=== PATIENT | female | born 1945 | race Caucasian/White ===

== ENCOUNTER → 2018-02-16 | Outpatient (CLI) | payer MEDICARE, OTHER ==
--- NOTE | 2018-02-18 10:18 | MM ---
Reason for exam: screening (asymptomatic). Last mammogram was performed 1 year ago. History: Patient is postmenopausal. Physical Findings: A clinical breast exam by your physician is recommended on an annual basis and results should be correlated with mammographic findings. MG 3D Screening Mammo W/Cad Bilateral CC and MLO view(s) were taken. Prior study comparison: February 14, 2017, mammogram, performed at [facility]. February 14, 2016, mammogram, performed at [facility]. The breast tissue is heterogeneously dense. This may lower the sensitivity of mammography. No significant changes when compared with prior studies. ASSESSMENT: Benign, BI-RAD 2 RECOMMENDATION: Routine screening mammogram of both breasts in 1 year.
== END | disposition home or self-care (01) ==
LOC: RADMAMWWP 13:54
PROVIDERS: ATTEND Family Medicine
DX: Z12.31 Encounter for screening mammogram for malignant neoplasm of breast (principal)
CPT/HCPCS: 77063; 77067

== ENCOUNTER → 2018-04-07 | Outpatient (CLI) | payer MEDICARE, OTHER ==
--- NOTE | 2018-04-07 10:59 | CT ---
EXAMINATION TYPE: CT brain wo con DATE OF EXAM: 04/07/2018 COMPARISON: None HISTORY: Fatigue, GUERRERO, Lt supraclavicular swelling CT DLP: 1061.[address] of the brain was performed. The ventricles, basal cisterns and sulci overlying the cerebral convexities demonstrate mild enlargem ent. There is no evidence for intracranial hemorrhage or sulcal effacement. There is decreased attenuation about the periventricular white matter and deep white matter of both c erebral hemispheres, compatible with chronic small vessel ischemia. Differential diagnosis does inclu de demyelination. No mass effects are seen.No midline shift. Osseous calvarium is intact. If symptoms persist consider MRI. IMPRESSION: 1. Age related atrophic and chronic small vessel ischemic change without acute intracranial process s een at this time.
--- NOTE | 2018-04-07 11:03 | CT ---
EXAMINATION TYPE: CT soft tissue neck wo con DATE OF EXAM: 04/07/2018 COMPARISON: None HISTORY: Fatigue, GUERRERO, Lt supraclavicular swelling CT DLP: 229.4 mGycm CONTRAST: Unenhanced CT scan of the neck is performed . The lack of contrast limits evaluation. Markers placed at the site of clinical concern overlying the left supraclavicular region. Contrast enhanced CT of the neck was performed from the skull base through the lung apices. At the site of clinical concern left supraclavicular region there is no evidence for mass or abnormal collection. AIRWAY: The supraglottic, glottic, and subglottic portions of the airway appear patent and free of mass. SALIVARY GLANDS: The submandibular and parotid glands are free of mass or inflammatory process. THYROID GLAND: Scattered nonspecific subcentimeter thyroid nodules. LYMPH NODES: No adenopathy seen greater than 1cm. LUNG APICES: No nodule or mass is seen. Biapical scarring noted. OTHER: Vascular structures are patent. No significant degenerative change of the cervical spine. N o abscess seen. IMPRESSION: 1.At the site of clinical concern left supraclavicular region there is no evidence for mass or abnorm al collection. 2. Subcentimeter nonspecific thyroid nodularity.
--- NOTE | 2018-04-07 17:52 | ECHOF ---
Referral Reason:R53.83 Fatigue,R51 Headache R22.1 Lump on neck MEASUREMENTS -------- HEIGHT: 162.6 cm WEIGHT: 62.1 kg BP: 170/102 IVSd: 1.0 cm (0.6 - 1.1) LVIDd: 3.9 cm (3.9 - 5.3) LVPWd: 0.9 cm (0.6 - 1.1) IVSs: 1.6 cm LVIDs: 2.5 cm LVPWs: 1.2 cm LA Diam: 2.7 cm (2.7 - 3.8) RVIDd: 3.3 cm (< 3.3) LAESV Index (A-L): 19.18 ml/m Ao Diam: 3.1 cm (2.0 - 3.7) AV Cusp: 1.9 cm (1.5 - 2.6) EPSS: 0.7 cm MV E Liu: 0.79 m/s MV DecT: 257 ms MV A Liu: 0.84 m/s MV E/A Ratio: 0.94 RAP: 5.00 mmHg RVSP: 24.45 mmHg MV EF SLOPE: 47.53 mm/s (70 - 150) MV EXCURSION: 13.02 mm (> 18.000) FINDINGS -------- Sinus rhythm. This was a technically adequate study. The left ventricular size is normal. Left ventricular wall thickness is normal. Overall left vent ricular systolic function is normal with, an EF between 60 - 65 %. The right ventricle is mildly enlarged. Normal LA size by volume 22+/-6 ml/m2. The right atrium is normal in size. The aortic valve is trileaflet and appears structurally normal. Moderate mitral regurgitation is present. Mild tricuspid regurgitation present. Right ventricular systolic pressure is normal at < 35 mmHg. There is no pulmonic regurgitation present. The aortic root size is normal. Normal inferior vena cava with normal inspiratory collapse consistent with estimated right atrial pre ssure of 5 mmHg. There is no pericardial effusion. CONCLUSIONS -------- 1. Sinus rhythm. 2. This was a technically adequate study. 3. The left ventricular size is normal. 4. Left ventricular wall thickness is normal. 5. Overall left ventricular systolic function is normal with, an EF between 60 - 65 %. 6. The right ventricle is mildly enlarged. 7. Normal LA size by volume 22+/-6 ml/m2. 8. The right atrium is normal in size. 9. The aortic valve is trileaflet and appears structurally normal. 10. Moderate mitral regurgitation is present. 11. Mild tricuspid regurgitation present. 12. Right ventricular systolic pressure is normal at < 35 mmHg. 13. There is no pulmonic regurgitation present. 14. The aortic root size is normal. 15. Normal inferior vena cava with normal inspiratory collapse consistent with estimated right atrial pressure of 5 mmHg. 16. There is no pericardial effusion. REVIEW NURSE: Hillary Whitney RDCS
--- NOTE | 2018-04-07 20:31 | EST ---
EXERCISE STRESS AGE: 72 SEX: Female HT: 64" WT: 137 pounds PROTOCOL: Osvaldo. STAGE: II DURATION OF EXERCISE: 6:00 HEART RATE REST: 72 BLOOD PRESSURE REST: 170/102 MAXIMUM HEART RATE ACHIEVED: 126 MAXIMUM BLOOD PRESSURE: 220/92 85% MPHR: 125 100% MPHR: 147 METS: 7.1 INDICATIONS: Neck and arm pain. CLINICAL INFORMATION: Baseline heart rate 72 beats per minute. Baseline blood pressure 170/102 mmHg. Baseline 12-lead ECG showed normal sinus rhythm with normal cardiac intervals. Patient exercised on a Osvaldo protocol for 6 minutes, achieving peak heart rate of 126 beats per minute, hypertensive exercise. Peak blood pressure 220/92 mmHg. Artifact during stress testing was noted, but at peak exercise there was no ECG evidence for ischemia. No arrhythmias noted. Nuclear portion will be reported separately. IMPRESSION: Average exercise capacity. Baseline elevation in systolic and diastolic blood pressures. No ECG evidence for ischemia at this workload level. MMODL / IJN: [id number] /
== END | disposition home or self-care (01) ==
LOC: RADNMMAIN 10:10
PROVIDERS: ATTEND Family Medicine
DX: G31.1 Senile degeneration of brain, not elsewhere classified (principal); I67.82 Cerebral ischemia; E04.2 Nontoxic multinodular goiter; I08.1 Rheumatic disorders of both mitral and tricuspid valves; R51 Headache; R53.83 Other fatigue
CPT/HCPCS: 70450; 70490; 93017; 93306

== ENCOUNTER → 2018-10-16 | Outpatient (CLI) | payer MEDICARE, OTHER ==
--- NOTE | 2018-10-17 11:34 | XR ---
EXAMINATION TYPE: XR chest 2V DATE OF EXAM: 10/16/2018 COMPARISON: 09/09/2017 TECHNIQUE: PA and lateral views submitted. HISTORY: Cough FINDINGS: The lungs are clear and there is no pneumothorax, pleural effusion, or focal pneumonia. Hyperinflat ion. Atherosclerotic change aorta and biapical pleural thickening. No overt failure. Coarsened linear changes involving the upper lobes. Hypertrophic and degenerative change spine. Vague density right u pper lobe. IMPRESSION: 1. No acute process. Findings suggest COPD. There is a vague somewhat nodular density in the right up per lobe. Recommend CT of the chest.
== END | disposition home or self-care (01) ==
LOC: RADXRMAIN 17:26
PROVIDERS: ATTEND Family Medicine
DX: R91.8 Other nonspecific abnormal finding of lung field (principal)
CPT/HCPCS: 71046

== ENCOUNTER → 2018-10-22 | Outpatient (CLI) | payer MEDICARE, OTHER ==
--- NOTE | 2018-10-22 09:00 | CT ---
EXAMINATION TYPE: CT chest wo con DATE OF EXAM: 10/22/2018 COMPARISON: 10/16/2018 HISTORY: Solitary pulmonary nodule. Abnormal chest radiograph. CT DLP: 328 mGycm. Automated Exposure Control for Dose Reduction was Utilized. TECHNIQUE: CT scan of the thorax is performed without IV contrast. FINDINGS: LUNGS: There is biapical pleural parenchymal scarring. There is mild background pulmonary emphysema a s there is pulmonary hyperexpansion, increased anterior posterior diameter of the chest, and increase d retrosternal airspace. The lungs are grossly clear without focal consolidation. 2 mm subpleural pul monary nodule is seen in the left lower lobe on series 4 image 28. 3 mm solid pulmonary nodule seen o n series 4 image 40 in the left lower lobe. Just anterior to this on the same image there is a 1 to 2 mm subpleural pulmonary nodule. Possible intrafissural lymph node is seen on the right elongated and morphology on series 4 image 25. This appears to be within the fissure axially, however on coronal i mage series 5 image 61 this does not appear to be within the fissure and measures 5 mm. Corresponding to the radiographic finding of possible right upper lobe pulmonary nodule there is a fo baltazar area of pleural thickening measuring 6 mm on series 4 image 19. This is contiguous with multiple other areas of pleural-parenchymal scarring extending inferiorly from the lung apices. Linear focus of probable pleural-parenchymal scarring is seen on series 4 image 28 in the right lower lobe that appears marked irregular morphology on coronal series 5 image 60. There is no pleural effusion or pneumothorax seen. The tracheobronchial tree is patent. MEDIASTINUM: Lack of IV contrast is noted to limit evaluation for mediastinal and especially hilar ad enopathy. There are no definitive greater than 1 cm hilar or mediastinal lymph nodes. No cardiomega ly or pericardial effusion is seen. Mild coronary artery calcifications are seen. OTHER: There is an approximately 1.2 cm left renal cyst. There is a lobulated contour of both kidneys . There is a moderate hiatal hernia present. The thyroid gland is heterogenous. There are mild multil evel degenerative changes of the thoracic spine. IMPRESSION: Corresponding to the radiographic finding there is a focal area of subcentimeter pleural thickening. Multiple bilateral subcentimeter pulmonary nodules are seen in this patient with underlyi ng COPD and therefore short-term follow-up is recommended in 6 months to determine stability.
== END | disposition home or self-care (01) ==
LOC: RADCTMAIN 07:17
PROVIDERS: ATTEND Family Medicine
DX: J44.9 Chronic obstructive pulmonary disease, unspecified (principal); J92.9 Pleural plaque without asbestos
CPT/HCPCS: 71250

== ENCOUNTER → 2019-03-10 | Outpatient (CLI) | payer MEDICARE, OTHER ==
--- NOTE | 2019-03-11 09:57 | MM ---
Reason for exam: screening (asymptomatic). Last mammogram was performed 1 year and 1 month ago. History: Patient is postmenopausal. Physical Findings: A clinical breast exam by your physician is recommended on an annual basis and results should be correlated with mammographic findings. MG 3D Screening Mammo W/Cad Bilateral CC and MLO view(s) were taken. Prior study comparison: February 16, 2018, bilateral MG 3d screening mammo w/cad. February 14, 2017, mammogram, performed at [facility]. The breast tissue is heterogeneously dense. This may lower the sensitivity of mammography. Benign appearing calcifications in the left breast. No significant changes when compared with prior studies. ASSESSMENT: Benign, BI-RAD 2 RECOMMENDATION: Routine screening mammogram of both breasts in 1 year.
== END ==
LOC: RADMAMWWP 14:31
PROVIDERS: ATTEND Family Medicine
DX: Z12.31 Encounter for screening mammogram for malignant neoplasm of breast (principal)
CPT/HCPCS: 77063; 77067

== ENCOUNTER → 2019-06-22 | Outpatient (CLI) | payer MEDICARE, OTHER ==
--- NOTE | 2019-06-23 08:10 | MR ---
EXAMINATION TYPE: MR brain wo con DATE OF EXAM: 06/22/2019 COMPARISON: CT brain dated 04/07/2018 HISTORY: Chronic tension-type headaches. TECHNIQUE: Multiplanar, multisequence images of the brain and brainstem is performed without intravenous contras t. FINDINGS: Diffusion weighted images demonstrate no evidence of a recent infarct or other diffusion ab normality. There is no extra-axial fluid collection. There are scattered foci of T2/FLAIR hyperinten sity within the subcortical and periventricular white matter, overall moderate burden. These most com monly relate to sequela of microangiopathy. The ventricular system and cisternal spaces are symmetric ally prominent compatible with age-related volume loss. Volume is age-appropriate. Midline structures demonstrate normal morphology. The craniocervical junction appears within normal limits. The dural venous sinuses appear patent. Mild mucosal thickening is seen in the ethmoid sinuse s. The remaining visualized sinuses are clear and the globes are intact. IMPRESSION: 1. No acute infarct, mass effect, or midline shift. 2. Moderate burden nonspecific white matter change, most prominently on the basis of chronic microang iopathy. Less likely considerations are for demyelinating disease or sequela of migraines. 3. Scant mucosal thickening of the ethmoid sinuses, which can be seen in acute or chronic sinusitis.
== END | disposition home or self-care (01) ==
LOC: RADMRIMAIN 12:36
PROVIDERS: ATTEND Family Medicine
DX: R90.89 Other abnormal findings on diagnostic imaging of central nervous system (principal); R51 Headache; I73.9 Peripheral vascular disease, unspecified
CPT/HCPCS: 70551

== ENCOUNTER → 2019-10-26 | Outpatient (CLI) | payer MEDICARE, OTHER ==
--- NOTE | 2019-10-26 16:02 | XR ---
KUB HISTORY: Left-sided kidney stone Frontal KUB submitted on 2 images and correlated to prior abdomen 09/09/2017 There is irregular calcification superimposed over the lower pole the left kidney region, calcificati on measures approximately 9 mm in transverse dimension, there may be smaller calculi present, 3 or 4 stones. There is a levoscoliosis present. Retained fecal debris present throughout the distribution o f the colon. No evident bowel obstruction or pneumoperitoneum. IMPRESSION: Left-sided nephrolithiasis.
== END | disposition home or self-care (01) ==
LOC: RADXRMAIN 11:29
PROVIDERS: ATTEND Urology
DX: N20.0 Calculus of kidney (principal)
CPT/HCPCS: 74018

== ENCOUNTER → 2020-06-12 | Outpatient (CLI) | payer MEDICARE, OTHER ==
--- NOTE | 2020-06-14 11:04 | MM ---
Reason for exam: screening (asymptomatic). Last mammogram was performed 1 year and 3 months ago. History: Patient is postmenopausal. Physical Findings: A clinical breast exam by your physician is recommended on an annual basis and results should be correlated with mammographic findings. MG 3D Screening Mammo W/Cad Bilateral CC and MLO view(s) were taken. Prior study comparison: March 10, 2019, bilateral MG 3d screening mammo w/cad. February 16, 2018, bilateral MG 3d screening mammo w/cad. The breast tissue is heterogeneously dense. This may lower the sensitivity of mammography. No significant changes when compared with prior studies. ASSESSMENT: Negative, BI-RAD 1 RECOMMENDATION: Routine screening mammogram of both breasts in 1 year.
== END | disposition home or self-care (01) ==
LOC: RADMAMWWP 08:38
PROVIDERS: ATTEND Family Medicine
DX: Z12.31 Encounter for screening mammogram for malignant neoplasm of breast (principal)
CPT/HCPCS: 77063; 77067

== ENCOUNTER → 2021-02-27 | Outpatient (CLI) | payer MEDICARE, OTHER ==
--- NOTE | 2021-02-28 08:15 | XR ---
EXAM TYPE: LUMBAR SPINE X RAY SERIES COMPARISON: NONE HISTORY: Pain TECHNIQUE: 4 views are submitted. FINDINGS: Diffuse osteopenia with levoscoliosis and multilevel degenerative disc disease with severe changes at L3-4 and L4-5. Multilevel facet arthropathy. Vascular calcium patient. There are multiple left-sided upper quadrant calcifications largest measuring 9.4 mm. IMPRESSION: 1. Multilevel severe degenerative disc disease with diffuse osteopenia and facet arthropathy consider follow-up MRI with foraminal encroachment suspected. 2. Large left renal calculi.
--- NOTE | 2021-02-28 08:16 | XR ---
EXAMINATION TYPE: XR Hip Bilateral Complete DATE OF EXAM: 02/27/2021 COMPARISON: NONE HISTORY: Pain TECHNIQUE: 2 views of each hip is submitted FINDINGS: There is no evidence of erosive change or acute fracture. Mild concentric narrowing of the right hip joint. There is more moderate narrowing of the left hip wi th axial direction. Hypertrophic spurring of the left hip noted. No acute fracture. Note dislocation. IMPRESSION: 1. Moderate to severe axial narrowing of the left hip joint correlate for arthropathy. Severe follow- up MRI. 2. Mild arthropathy right hip..
== END | disposition home or self-care (01) ==
LOC: RADXRMAIN 17:23
PROVIDERS: ATTEND Family Medicine
DX: M51.36 Other intervertebral disc degeneration, lumbar region (principal); M85.88 Other specified disorders of bone density and structure, other site; M46.96 Unspecified inflammatory spondylopathy, lumbar region; N20.0 Calculus of kidney; M12.851 Other specific arthropathies, not elsewhere classified, right hip; M25.852 Other specified joint disorders, left hip
CPT/HCPCS: 72110; 73521

== ENCOUNTER → 2021-04-11 | Outpatient (CLI) | payer MEDICARE, OTHER ==
--- NOTE | 2021-04-11 13:55 | MR ---
EXAMINATION TYPE: MR lumbar spine wo con DATE OF EXAM: 04/11/2021 COMPARISON: Plain radiographs 02/27/2021 HISTORY: Lumbar spine pain, pain in left leg TECHNIQUE: Multiplanar, multisequence images of the lumbar spine were acquired. L1-L2: There is a disc bulge with mild left neural foraminal narrowing. L2-L3: There is a disc bulge with mild bilateral facet arthropathy resulting in mild bilateral neural foraminal narrowing. L3-L4: There is a disc bulge with mild bilateral facet arthropathy resulting in moderate bilateral ne ural foraminal narrowing and mild central canal stenosis. L4-L5: There is a disc bulge with mild bilateral facet arthropathy resulting in mild bilateral neural foraminal narrowing and mild central canal stenosis. L5-S1: There is a disc bulge with mild bilateral facet arthropathy resulting in moderate bilateral ne ural foraminal narrowing and mild central canal stenosis. Lumbar segments are intact. T2 bright lesions of the kidneys most likely represent cysts and: Ultraso und be performed if clinically warranted. Conus medullaris has a normal appearance. 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
== END | disposition home or self-care (01) ==
LOC: RADMRIMAIN 11:58
PROVIDERS: ATTEND Family Medicine
DX: M51.9 Unspecified thoracic, thoracolumbar and lumbosacral intervertebral disc disorder (principal)
CPT/HCPCS: 72148

== ENCOUNTER → 2021-04-16 | Outpatient (CLI) | payer MEDICARE, OTHER ==
[2021-04-16 09:09] LABS: African American GFR (CKD) >90 (>60 ml/min/1.73 sqM); Blood Urea Nitrogen 23 mg/dL (7-17); Non-African American GFR(CKD) 87 (>60 ml/min/1.73 sqM)
--- NOTE | 2021-04-16 11:57 | CT ---
EXAMINATION TYPE: CT chest wo/w con DATE OF EXAM: 04/16/2021 COMPARISON: 10/22/2018 HISTORY: Pulmonary nodule CT DLP: 222.5 mGycm, Automated exposure control for dose reduction was used. CONTRAST: Performed injected with 100 mL of Isovue 300. TECHNIQUE: Axial images were obtained at 5 mm thick sections. Reconstructed images are reviewed on [facility] computer in the coronal plane. Images without and with intravenous contrast. FINDINGS: Portion of the thyroid visualized is normal. Previous peripheral density size. Small nodule in the right mid lung measuring 0.3 cm is stable, seri es 7 image 29. There is a 0.3 cm nodule peripheral left base present previously and stable. No new no dules are noted. Previous posterior lateral right upper lobe density has resolved. Stable scarring at the apex. No enlarged mediastinal or hilar adenopathy is evident. The ascending aorta diameter at the level o f the main pulmonary artery is 3.4 cm. The main pulmonary artery diameter at the bifurcation is 2.2 cm. Hiatal hernia present. Limited CT sections are obtained through the upper abdomen. Abdomen is essentially unremarkable. IMPRESSIONS: 1. Stable nodularity. Follow-up exam in 6 months to confirm stability recommended.
== END | disposition home or self-care (01) ==
LOC: RADCTMAIN 08:30
PROVIDERS: ATTEND Family Medicine
DX: R91.1 Solitary pulmonary nodule (principal)
CPT/HCPCS: 82565; 84520; 71270; 36415; Q9967

== ENCOUNTER → 2021-07-04 | Outpatient (CLI) | payer MEDICARE, OTHER ==
--- NOTE | 2021-07-05 08:39 | US ---
EXAMINATION TYPE: US kidneys/renal and bladder DATE OF EXAM: 07/04/2021 COMPARISON: NONE CLINICAL HISTORY: 75-year-old female R35.0 Frequency of micturition. Urinary frequency . TECHNIQUE: Multiple sonographic images of the kidneys and bladder are obtained. FINDINGS: EXAM MEASUREMENTS: Right Kidney: 10.9 x 3.9 x 3.9 cm Left Kidney: 11.0 x 4.7 x 3.5 cm No hydronephrosis on either side. Right Kidney: cystic area lower pole = 1.1 x 0.7 x 1.1cm Left Kidney: cystic area = 2.0 x 1.4 x 1.9cm. Echogenic, shadowing focus lower pole measures 1.5 cm. Bladder: appears wnl Bilateral Jets seen: yes IMPRESSION: 1. No hydronephrosis. 2. A benign cyst within each kidney measuring up to 2.0 cm. 3. Additional 1.5 cm nonobstructive left lower pole renal calculus.
== END | disposition home or self-care (01) ==
LOC: RADUSWWP 16:04
PROVIDERS: ATTEND Urology
DX: N28.1 Cyst of kidney, acquired (principal); N20.0 Calculus of kidney
CPT/HCPCS: 76770

== ENCOUNTER → 2021-09-05 | Outpatient (CLI) | payer MEDICARE, OTHER ==
--- NOTE | 2021-09-06 14:35 | MM ---
Reason for exam: screening (asymptomatic). Last mammogram was performed 1 year and 3 months ago. History: Patient is postmenopausal. Physical Findings: A clinical breast exam by your physician is recommended on an annual basis and results should be correlated with mammographic findings. MG 3D Screening Mammo W/Cad Bilateral CC and MLO view(s) were taken. XCCL view(s) were taken of the left breast. Prior study comparison: June 12, 2020, bilateral MG 3d screening mammo w/cad. March 10, 2019, bilateral MG 3d screening mammo w/cad. The breast tissue is heterogeneously dense. This may lower the sensitivity of mammography. No significant changes when compared with prior studies. ASSESSMENT: Benign, BI-RAD 2 RECOMMENDATION: Routine screening mammogram of both breasts in 1 year.
== END | disposition home or self-care (01) ==
LOC: RADMAMWWP 08:32
PROVIDERS: ATTEND Family Medicine
DX: Z12.31 Encounter for screening mammogram for malignant neoplasm of breast (principal)
CPT/HCPCS: 77063; 77067

== ENCOUNTER → 2021-09-11 | Outpatient (CLI) | payer MEDICARE, OTHER ==
--- NOTE | 2021-09-11 22:53 | CT ---
EXAMINATION TYPE: CT abdomen pelvis wo con DATE OF EXAM: 09/11/2021 HISTORY: abdominal/pelvic pain CT DLP: 240.8 mGycm. Automated Exposure Control for Dose Reduction was Utilized. TECHNIQUE: CT scan of the abdomen and pelvis is performed with oral but without IV contrast. COMPARISON: NONE FINDINGS: Within the limitations of a non-contrast study, the following observations are made. LUNG BASES: No significant abnormality is appreciated. LIVER/GB: No significant abnormality is appreciated. PANCREAS: No significant abnormality is seen. SPLEEN: No significant abnormality is seen. ADRENALS: No significant abnormality is seen. KIDNEYS: Several adjacent calculi lower pole left kidney measure up to 9 mm in size coronal image 47 with approximately 5 distinct calculi seen. No right-sided nephrolithiasis. Ovoid 1.7 cm low dense le heri laterally midpole left kidney on image 49 favors benign thin-walled cyst. Symmetric mild bilater al pyelocaliectasis without hydroureter. BOWEL: Oral contrast reaches mid transverse colon. Patient has little intra-abdominal fat making eval uation suboptimal. Mild to moderate diffuse colonic fecal prominence. No suspicious small or large bessie wel dilatation. GENITAL ORGANS: Anteverted uterus. LYMPH NODES: No greater than 1cm abdominal or pelvic lymph nodes are appreciated. OSSEOUS STRUCTURES: Underlying levoconvex scoliosis centered at L3 level. Moderate to severe disc spa ce narrowing right L3-L4 and L4-L5 levels. Moderate disc space narrowing L5-S1 level.. OTHER: Mild calcified plaque of the aorta extends into branch vessels. IMPRESSION: 1. Ijer-[id number] diffuse colonic fecal stasis. No bowel obstruction. 2. Nonobstructing lower pole left renal calculi. No obstructing ureter calculi bilaterally.
== END | disposition home or self-care (01) ==
LOC: RADCTMAIN 15:45
PROVIDERS: ATTEND Family Medicine
DX: N20.0 Calculus of kidney (principal)
CPT/HCPCS: 74176

== ENCOUNTER → 2022-01-14 | Outpatient (CLI) | payer MEDICARE, OTHER ==
[2022-01-14 10:02] LABS: African American GFR (CKD) >90 (>60 ml/min/1.73 sqM); Blood Urea Nitrogen 17 mg/dL (7-17); Non-African American GFR(CKD) 89 (>60 ml/min/1.73 sqM)
--- NOTE | 2022-01-14 11:32 | CT ---
EXAMINATION TYPE: CT chest wo/w con DATE OF EXAM: 01/14/2022 COMPARISON: CT dated 04/16/2021 HISTORY: Pulmonary nodule CT DLP: 231.1 mGycm Automated exposure control for dose reduction was used. TECHNIQUE: CT scan of the chest is performed without and with IV Contrast, patient injected with 100 mL of Isovu e 300. FINDINGS: LUNGS: Stable scattered bilateral pulmonary parenchymal and pleural-based nodules measuring up to 17 mm in the right lower lobe superior segment, unchanged since September 2018 CT scan consistent with kike ign nodules and requiring no further follow-up. Bilateral apical pulmonary fibrotic changes and scarr ing stable. No new or progressive lung lesion. Patent trachea and main bronchi. No pleural effusion. MEDIASTINUM: There are no greater than 1 cm hilar or mediastinal lymph nodes. Mild left atrial dilata tion. Scattered arterial atherosclerotic calcifications. No pericardial effusion is seen. OTHER: Tiny right thyroid lobe hypodensity, stable. Unchanged anterior hepatic cyst. Stable left mayra al cyst. Small sliding hiatal hernia. No aggressive bone lesion. Degenerative changes of the thoracic spine. IMPRESSION: Stable scattered bilateral pulmonary nodules as described above, unchanged since September 2018 CT scan consistent with benign nodules. No new or progressive lung lesion. Incidental findings as described above.
== END | disposition home or self-care (01) ==
LOC: RADCTMAIN 11-05 10:39
PROVIDERS: ATTEND Family Medicine
DX: R91.1 Solitary pulmonary nodule (principal)
CPT/HCPCS: 82565; 84520; 71270; 36415; Q9967

== ENCOUNTER → 2022-05-02 | Outpatient (CLI) | payer MEDICARE, OTHER ==
--- NOTE | 2022-05-02 15:05 | XR ---
EXAMINATION TYPE: XR KUB DATE OF EXAM: 05/02/2022 2:33 PM CLINICAL HISTORY: Kidney stone on left side. TECHNIQUE: Single KUB image of the abdomen is obtained. COMPARISON: CT abdomen pelvis 09/11/2021, KUB 10/26/2019. FINDINGS: Nonobstructive bowel gas pattern. Moderate amount of stool is present within the colon. Unc hanged 1 cm irregular calcification overlying the expected region of the lower pole of the left kidne y. Levoscoliotic curvature of the thoracal lumbar spine. IMPRESSION: * Unchanged 1 cm calcification overlying the expected region of the lower pole left kidney. * Moderate colonic stool burden.
== END | disposition home or self-care (01) ==
LOC: RADXRMAIN 14:14
PROVIDERS: ATTEND Urology
DX: N20.0 Calculus of kidney (principal)
CPT/HCPCS: 74018

== ENCOUNTER → 2022-05-15 | Outpatient (CLI) | payer MEDICARE, OTHER ==
--- NOTE | 2022-05-15 18:42 | US ---
EXAMINATION TYPE: US kidneys/renal and bladder DATE OF EXAM: 05/15/2022 COMPARISON: CT 09/11/2021 and ultrasound 07/04/2021 CLINICAL HISTORY: 76-year-old female N20.0 KIDNEY STONE. TECHNIQUE: Multiple sonographic images of the kidneys and bladder are obtained. EXAM MEASUREMENTS: Right Kidney: 11.7 x 4.0 x 5.0 cm Left Kidney: 11.4 x 4.9 x 4.6 cm Right Kidney: There is an extrarenal pelvis.. No calyceal dilatation to suggest hydronephrosis. 8 mm cortical cyst at the lateral lower pole Left Kidney: 3-4 somewhat irregular shadowing stones at the lower pole, largest two about 1.3 and 1.1 cm. There is a 1.9 cm centrally located mid to lower pole renal cyst. Bladder: Partially distended bladder shows no gross abnormality. Bilateral Jets seen: yes IMPRESSION: 1. No hydronephrosis. Extrarenal pelvis on the right. 2. Approximately 3 renal calculi at the left lower pole measuring up to 1.3 cm.
== END | disposition home or self-care (01) ==
LOC: RADUSWWP 13:24
PROVIDERS: ATTEND Urology
DX: N20.0 Calculus of kidney (principal)
CPT/HCPCS: 76770

== ENCOUNTER → 2022-08-08 | Outpatient (CLI) | payer MEDICARE, OTHER ==
--- NOTE | 2022-08-08 15:46 | XR ---
EXAMINATION TYPE: XR KUB DATE OF EXAM: 08/08/2022 COMPARISON: 05/02/2022 HISTORY: Pain TECHNIQUE: One view abdominal series FINDINGS: Scoliosis of the spine with multilevel degenerative disc disease. Arthropathy of the hips. Retained f ecal debris throughout the colon correlate for constipation. This does obscure portions of the renal outline. Question a 2 mm punctate right renal calculus. The bowel gas pattern is nonspecific. No susp icious Left-sided renal calculi with the largest measuring 7 mm.. IMPRESSION: 1. Stable. Left-sided nephrolithiasis. Question 2 mm mid to upper pole right renal calculus..
== END | disposition home or self-care (01) ==
LOC: RADXRMAIN 15:07
PROVIDERS: ATTEND Urology
DX: N20.0 Calculus of kidney (principal)
CPT/HCPCS: 74018

== ENCOUNTER → 2022-10-14 | Outpatient (CLI) | payer MEDICARE, OTHER ==
[2022-10-14 22:51] LABS: Appearance,Urine Clear (Clear); Bilirubin,Urine Negative (Negative); Blood,Urine Trace (Negative); Color,Urine Yellow (Yellow); Ketones,Urine Negative (Negative); Nitrite,Urine Negative (Negative); PH, Urine 7.5 (5.0-8.0); Urobilinogen,Urine 0.2 (0.2,1.0)
[2022-10-14 22:55] LABS: Bacteria,Urine None Seen /HPF (None Seen)
[2022-10-14 23:05] LABS: Basophils # (A) 0.01 X 10*3/uL (0.00-0.10); Basophils % (A) 0.2 %; Eosinophils # (A) 0.09 X 10*3/uL (0.04-0.35); Eosinophils % (A) 1.5 %; HCT 42.6 % (37.2-46.3); HGB 13.2 g/dL (12.0-15.0); Immature Grans, Automated 0.3 %; Lymphocytes % (A) 24.7 %; MCH 30.6 pg (27.0-32.0); MCV 98.6 fL (80.0-97.0); Mean Platelet Volume 10.6 fL (9.5-12.2); Monocytes # (A) 0.64 X 10*3/uL (0.20-1.00); Monocytes % (A) 10.5 %; NRBC Per 100 WBC 0 /100 WBCS (0.0-0.0); Neutrophils # (A) 3.81 X 10*3/uL (1.80-7.70); Neutrophils % (A) 62.8 %; Platelet Count 276 X 10*3/uL (140-440); RBC 4.32 X 10*6/uL (4.10-5.20); RDW 12.8 % (11.5-14.5); WBC 6.07 X 10*3/uL (4.50-10.00)
[2022-10-14 23:52] LABS: Anion Gap 10.8 mmol/L (10.00-18.00); BUN/Creat Ratio 18.49 Ratio (12.00-20.00); Blood Urea Nitrogen 15.9 mg/dL (9.0-27.0); Calcium 9.8 mg/dL (8.7-10.3); Carbon Dioxide 27.2 mmol/L (20.0-27.5); Non-African American GFR(CKD) 64.7 (60.0-200.0); Potassium 4.5 mmol/L (3.5-5.5)
== END | disposition home or self-care (01) ==
LOC: LABPAT 14:05
PROVIDERS: ATTEND Urology
DX: Z01.812 Encounter for preprocedural laboratory examination (principal); N20.0 Calculus of kidney; R31.29 Other microscopic hematuria
CPT/HCPCS: 80048; 81001; 85025; 87086

== ENCOUNTER 2022-10-22 06:07 | Day surgery (SDC) | payer MEDICARE, OTHER ==
[2022-10-17 11:30] VITALS: BMI 21.6
--- NOTE | 2022-10-21 19:52 | P.HPIHPCON ---
History of Present Illness This is a 77 yo female with hx of left sided lower pole renal stone, KUB/CT showed multiple lower pole stone. She is symptomatic from her stone Option of ureteroscopy with holmium laser, ESWL and PCNL was discussed in details. Risk and benefit of each approach was discussed. She agreed to proceed with left sided PCNL discussed risk of bleeding, infection, injury to nearby organs which include but not limited to lung, spleen, bowel and kidney. discussed also risk from anesthesia. She understood all the risk and agreed to proceed with left sided PCNL Consent for Procedure: I have explained the operation/procedure to the patient, including the risks, benefits, side effects, alternative therapies (including not receiving the proposed treatment or service), the likelihood of the patient achieving his/her goals, and potential recuperation problems for the procedure/sedation/analgesia, as well as any blood products, if indicated. I also explained to the patient the risks, benefits and side effects of the alternatives, as well as the risks related to not receiving the proposed procedure, care, treatment, or services. Past Medical History Past Medical History: Hypertension Additional Past Medical History / Comment(s): mult left kidney stones,IBS w/ constipation History of Any Multi-Drug Resistant Organisms: None Reported Past Surgical History: Tubal Ligation Additional Past Surgical History / Comment(s): rt rot cuff repair Past Anesthesia/Blood Transfusion Reactions: No Reported Reaction Additional Past Anesthesia/Blood Transfusion Reaction / Comment(s): no hx blood transfusion Smoking Status: Former smoker - Past Family History Mother Family Medical History: Cancer Additional Family Medical History / Comment(s): intestinal CA Father Family Medical History: Cancer Additional Family Medical History / Comment(s): ureter CA Medications and Allergies Home Medications Medication Instructions Recorded Confirmed Type Ascorbic Acid [Vitamin C] 500 mg PO DAILY 10/17/22 10/17/22 History Ergocalciferol [Vitamin D2 (1250 50,000 unit PO Q7D 10/17/22 10/17/22 History Mcg = 41413 Iu)] L.acidoph,Paracasei, B.lactis 1 each PO DAILY 10/17/22 10/17/22 History [Probiotic] Multivitamins, Thera [Multivitamin 1 tab PO DAILY 10/17/22 10/17/22 History (formulary)] amLODIPine [Norvasc] 5 mg PO HS 10/17/22 10/17/22 History polyethylene glycoL 3350 [Miralax] 17 gm PO DAILY 10/17/22 10/17/22 History valACYclovir HCL [Valtrex] 500 mg PO DAILY PRN 10/17/22 10/17/22 History Allergies Allergy/AdvReac Type Severity Reaction Status Date / Time gluten Allergy Nausea & Verified 10/17/22 11:22 Vomiting & Diarrhea Milk Containing Products Allergy Nausea & Verified 10/17/22 11:22 [Dairy] Vomiting & Diarrhea Penicillins Allergy faints Verified 10/17/22 09:50 iodine AdvReac Abdominal Verified 10/17/22 09:50 Pain meperidine [From Demerol] AdvReac low b/p Verified 10/17/22 11:22 Surgical - Exam - General no distress, moderate pain - Eyes normal ocular movement - Respiratory normal expansion, normal respiratory effort - Abdomen Abdomen: soft, tender (left CVA) - Psychiatric oriented to time, oriented to person, oriented to place Assessment and Plan Assessment: -OR left PCNL
[~2022-10-22 06:07] MED LIST: CLINDAMYCIN 600 MG in DEXTROSE 5% IN WATER 50 ML IVPB PRN; GENTAMICIN 120 MG in SODIUM CHLORIDE 0.9% 100 ML IVPB PRN
[2022-10-22] MEDS ORDERED: DEXAMETHASONE SOD PHOSPHATE 4 MG/ML 1 ML VIAL IVP ONE (07:00)
[2022-10-22] MEDS ORDERED: ONDANSETRON 4 MG/2 ML VIAL IVP ONE ×2 (07:00→13:04)
[2022-10-22] MEDS ORDERED: LACTATED RINGERS 1,000 ML IV ONE ×3 (07:04→11:35)
[2022-10-22] MEDS ORDERED: ONDANSETRON 4 MG/2 ML VIAL ONE (07:09)
--- NOTE | 2022-10-22 07:46 | XR ---
EXAMINATION TYPE: XR KUB DATE OF EXAM: 10/22/2022 CLINICAL HISTORY: Preop left-sided renal stone TECHNIQUE: Single supine KUB image of the abdomen is obtained. COMPARISON: 08/08/2022, CT 09/11/2021 FINDINGS: Stable large calculus projecting over the lower pole left kidney. There is also a stable c alcification in the right midabdomen just lateral to the L3-4 disc space. Large amount of stool and g as throughout the colon. Nonobstructive bowel gas pattern. Degenerative changes of the spine. Lung ba ses are clear. No pneumoperitoneum. IMPRESSION: Stable left renal calculus.
[2022-10-22] MEDS ORDERED: NEOSTIGMINE 1 MG/ML 10 ML VIAL ONE (07:55)
[2022-10-22] MEDS ORDERED: PROPOFOL 10 MG/ML 20 ML VIAL IV ONE (07:55)
[2022-10-22] MEDS ORDERED: ROCURONIUM 10 MG/ML (5 ML VIAL) IV ONE (07:55)
[2022-10-22] MEDS ORDERED: LIDOCAINE 2% INJ 20 MG/ML (2 ML VIAL) ONE (07:55)
[2022-10-22] MEDS ORDERED: fentaNYL (PF) 50 MCG/ML 2 ML AMP ONE (07:55)
[2022-10-22] MEDS ORDERED: GLYCOPYRROLATE 0.2 MG/ML 2 ML VIAL ONE (07:55)
[2022-10-22] MEDS ORDERED: SUCCINYLCHOLINE CHLORIDE 200 MG/10 ML VIAL IV ONE (07:55)
[2022-10-22] MEDS ORDERED: PHENYLEPHRINE-0.9% NACL SYG 1,000 MCG/10 ML SYRINGE ONE (07:55)
[2022-10-22] MEDS ORDERED: HYDROmorphone 0.5 MG/0.5 ML SYRINGE IVP PRN ×2 (08:08→13:04)
[2022-10-22] MEDS ORDERED: IOPAMIDOL-370 100ML BTL MISCELLANE ONE (08:17)
[2022-10-22] MEDS ORDERED: ERGOCALCIFEROL 1,250 MCG (50,000 IU) CAPSULE PO SCH (09:00)
--- NOTE | 2022-10-22 10:17 | US ---
EXAMINATION TYPE: US guidance for procedure DATE OF EXAM: 10/22/2022 CLINICAL HISTORY: Ultrasound-guided access for PCNL TECHNIQUE: Real time ultrasound guidance was utilized intraoperatively for renal access. COMPARISON: None. FINDINGS: Ultrasound of the left kidney demonstrates calculi within lower pole calyces. There is no hydronephrosis. An image was saved. Saline was injected via a balloon catheter placed retrograde in t he left ureter to distend the calyces. Under ultrasound guidance, a 20-gauge Chiba needle was advance d into a posterior pole calyx targeting the calyx with the calculus. After advancing a 0.018 cope wir e under fluoroscopic guidance, a transitional dilator set was used to upsize to a 0.035 system. A 0.0 35 Glidewire advantage was advanced down the left ureter and the remainder of the PCNL procedure was performed by Dr. Paniagua. IMPRESSION: Ultrasound guided left renal access for PCNL.
--- NOTE | 2022-10-22 10:32 | P.OP ---
Date of Procedure: 10/22/22 Preoperative Diagnosis: Left-sided renal stone Postoperative Diagnosis: Same Procedure(s) Performed: Cystoscopy, left ureteral catherization, PCNL Implants: none Anesthesia: DUKEA Surgeon: Chintan Paniagua Estimated Blood Loss (ml): 150 Pathology: other (Left renal stone) Condition: stable Disposition: PACU Indications for Procedure: This is a 77 yo female with hx of left sided lower pole renal stone, KUB/CT showed multiple lower pole stone. She is symptomatic from her stone Option of ureteroscopy with holmium laser, ESWL and PCNL was discussed in details. Risk and benefit of each approach was discussed. She agreed to proceed with left sided PCNL discussed risk of bleeding, infection, injury to nearby organs which include but not limited to lung, spleen, bowel and kidney. discussed also risk from anesthesia. She understood all the risk and agreed to proceed with left sided PCNL Operative Findings: 3 large stones within the lower pole Description of Procedure: Patient brought to the operating room, general anesthesia was induced. She was placed on the table in the frog-leg position. Cystoscopy was performed which showed no abnormality within the bladder. Attention was then carried to the left ureteral orifice which was intubated with a balloon occlusion catheter. Next the patient was placed in prone position, all pressure points were padded. Left flank was prepped and draped sterilely. Next access was obtained by , please see his operative note for his portion of the dictation. After access was obtained to the kidney an 810 Montenegrin dilator was passed over the wire and into the renal pelvis. Next a second stiff wire was placed through the 10 dilator the dilator was removed with both wires in place. Next under fluoroscopy the tract was dilated to 30-Montenegrin. Next a 30-Montenegrin access sheath was passed over the balloon dilator. Next the rigid nephroscope was inserted through the sheath, renoscopy was performed which showed no evidence of stones within the renal pelvis or the calyces that could be visualized using the rigid nephroscope. The stones could be seen on fluoroscopy but I could not access using the rigid nephroscope. This time a flexible cystoscope was inserted through the access sheath, renoscopy was performed which showed 3 large stones within the lower pole. The stones were grasped using the stone basket and sent for analysis. Repeat renoscopy showed no additional stones within the kidney, on fluoroscopy there is no additional radiopaque densities visualized. Antegrade nephrostogram was performed which showed no filling defect along the course of the ureter, there is some contrast extravasation along the lower pole significant at this time a 12-Montenegrin nephrostomy tube was passed over the wire and into the renal pelvis. Repeat nephrostogram was performed nephrostomy tube to be the kidney. Next the nephrostomy tube was secured to the skin using 2-0 silk. The defect medially was also closed 2-0 Vicryl. At this time the patient was awakened from anesthesia and taken to recovery in stable condition
--- NOTE | 2022-10-22 10:33 | FL ---
EXAMINATION TYPE: FL Perc Nephrostomy New Access DATE OF EXAM: 10/22/2022 CLINICAL HISTORY: Left-sided renal stone TECHNIQUE: Fluoroscopy. COMPARISON: None. FINDINGS: Fluoroscopic guidance was provided during procedure performed by Dr. Paniagua. A total of 1 .29 minutes of fluoroscopic time was utilized during the procedure and 1 spot images was acquired. Pl ease see operative note for further procedural details and ultrasound-guided nephrostomy access dicta tion for details of the left renal access. IMPRESSION: As Above.
[2022-10-22] MEDS ORDERED: HYDROmorphone 0.5 MG/0.5 ML SYRINGE IVP ONE (10:45)
[2022-10-22] MEDS ORDERED: KETOROLAC 15 MG/ML 1 ML VIAL IVP ONE (11:05)
[2022-10-22] MEDS ORDERED: MIDAZOLAM 2 MG/2 ML VIAL IV PRN (13:04)
[2022-10-22] MEDS ORDERED: DEXTROSE 5%-0.45% NACL 1,000 ML IV SCH (13:04)
[2022-10-22] MEDS ORDERED: ONDANSETRON 4 MG/2 ML VIAL IVP PRN ×2 (13:04→16:26)
[2022-10-22] MEDS ORDERED: MAG HYDROX/AL HYDROX/SIMETH 30 ML CUP PO PRN (13:04)
[2022-10-22] MEDS ORDERED: DEXAMETHASONE SOD PHOSPHATE 4 MG/ML 1 ML VIAL IV ONE (13:04)
[2022-10-22 13:15] LABS: Glucose,Whole Blood 120 mg/dL (70-110)
[2022-10-22 13:53] VITALS: RESP 16
--- NOTE | 2022-10-22 14:14 | XR ---
EXAMINATION TYPE: XR KUB DATE OF EXAM: 10/22/2022 Comparison: 10/22/2022 Clinical History: 77-year-old female postop kidney stones Findings: A left-sided nephrostomy tube is demonstrated. The previous left-sided calcifications are no longer i dentified. Scattered mild stool. Supine imaging limited for assessment of free air. Nonobstructive bessie wel gas pattern. Questionable 4 mm calcification right midabdomen. Impression: Interval placement of left nephrostomy tube. The previous left-sided renal calculi are no longer appa rent. Questionable 4 mm right renal calculus.
[2022-10-22] MEDS: SODIUM CHLORIDE 0.9% 1,000 ML IV SCH (16:41)
[2022-10-22] MEDS: ACETAMINOPHEN TAB 325 MG TAB PO PRN (16:43)
[2022-10-22] MEDS: HEPARIN SODIUM,PORCINE/PF 5,000 UNIT/0.5 ML SYRINGE SQ SCH (16:45)
[2022-10-22] MEDS: polyethylene glycoL 3350 17 GM POWD.PACK PO SCH (19:05)
[2022-10-22] MEDS: LACTATED RINGERS 1,000 ML IV SCH (19:06)
[2022-10-22] MEDS: KETOROLAC 15 MG/ML 1 ML VIAL IVP SCH ×4 (19:06→23:59)
[2022-10-22] MEDS ORDERED: amLODIPine 5 MG TAB PO SCH (21:00)
[2022-10-23] MEDS: SODIUM CHLORIDE 0.9% 1,000 ML IV SCH (04:42)
[2022-10-23] MEDS: KETOROLAC 15 MG/ML 1 ML VIAL IVP SCH ×2 (05:23→12:24)
[2022-10-23] MEDS: ACETAMINOPHEN TAB 325 MG TAB PO PRN ×2 (09:26→15:45)
[2022-10-23] MEDS: HEPARIN SODIUM,PORCINE/PF 5,000 UNIT/0.5 ML SYRINGE SQ SCH ×2 (09:28)
[2022-10-23 10:27] VITALS: BP 122/71; PULSE 70; TEMP 98.1
[2022-10-23] MEDS: polyethylene glycoL 3350 17 GM POWD.PACK PO SCH (10:57)
[2022-10-23] MEDS: LACTATED RINGERS 1,000 ML IV SCH (13:18)
--- NOTE | 2022-10-23 15:27 | P.DS ---
Providers Expected date of discharge: 10/23/22 Attending physician: Chintan Paniagua MD Primary care physician: [facility] Course: The patient is a 77-year-old female with a past medical history significant for hypertension and IBS. She also has a history of left-sided lower pole renal stone. KUB/CT showed multiple lower pole stones. On 10/22/22 the patient presented to the hospital and underwent a cystoscopy, left ureteral catheterization, PCNL with Dr. Paniagua. The patient tolerated the procedure well and was taken to the recovery room in stable condition. POD#1 the patient's Poon was DC'd and the patient is able to void without difficulty. The left sided nephrostomy tube dressing with small amount of drainage. It is draining light tinged urine. The patient states her pain is well managed. She denies any nausea or vomiting. She has been able to tolerate a diet and ambulate. She is afebrile and her vital signs are stable. Prescriptions for Toradol, Lamoille, and Zofran were sent to her pharmacy. The patient is to follow-up with Dr. paniagua on 10/30/22. Impression and plan of care have been directed as dictated by the signing physician. Vanessa Li nurse practitioner acting as scribe for signing physician. Vanessa Li [facility] Palliative Care/Urology Spectralink [id number] Email: [email or web address] Patient Condition at Discharge: Good Plan - Discharge Summary Discharge Rx Participant: Yes New Discharge Prescriptions: New Sennosides-Docusate Sodium [Senokot-S] 1 tab PO DAILY PRN #7 tablet PRN Reason: Constipation HYDROcodone/APAP 5-325MG [Lamoille 5-325] 1 tab PO Q6HR PRN 3 Days #10 tab PRN Reason: Pain Ketorolac [Toradol] 10 mg PO Q6HR PRN #15 tab PRN Reason: Pain Continue valACYclovir HCL [Valtrex] 500 mg PO DAILY PRN PRN Reason: herpes Ergocalciferol [Vitamin D2 (1250 Mcg = 90752 Iu)] 50,000 unit PO Q7D Ascorbic Acid [Vitamin C] 500 mg PO DAILY Multivitamins, Thera [Multivitamin (formulary)] 1 tab PO DAILY L.acidoph,Paracasei, B.lactis [Probiotic] 1 each PO DAILY amLODIPine [Norvasc] 5 mg PO HS polyethylene glycoL 3350 [Miralax] 17 gm PO DAILY Discharge Medication List Ascorbic Acid [Vitamin C] 500 mg PO DAILY 10/17/22 [History] Ergocalciferol [Vitamin D2 (1250 Mcg = 38768 Iu)] 50,000 unit PO Q7D 10/17/22 [History] L.acidoph,Paracasei, B.lactis [Probiotic] 1 each PO DAILY 10/17/22 [History] Multivitamins, Thera [Multivitamin (formulary)] 1 tab PO DAILY 10/17/22 [Hist ory] amLODIPine [Norvasc] 5 mg PO HS 10/17/22 [History] polyethylene glycoL 3350 [Miralax] 17 gm PO DAILY 10/17/22 [History] valACYclovir HCL [Valtrex] 500 mg PO DAILY PRN 10/17/22 [History] HYDROcodone/APAP 5-325MG [Lamoille 5-325] 1 tab PO Q6HR PRN 3 Days #10 tab 10/23/22 [Rx] Ketorolac [Toradol] 10 mg PO Q6HR PRN #15 tab 10/23/22 [Rx] Sennosides-Docusate Sodium [Senokot-S] 1 tab PO DAILY PRN #7 tablet 10/23/22 [Rx] Follow up Appointment(s)/Referral(s): Chintan Paniagua MD [STAFF PHYSICIAN] - 10/30/22 Patient Instructions/Handouts: Nephrostomy Tube Care (DC) Activity/Diet/Wound Care/Special Instructions: - No heavy lifting, straining, or strenuous activity - Take pain medication as prescribed for discomfort - You may shower, no tub baths - It is normal to have blood in your urine - Increase your fluid intake - You may have drainage around the nephrostomy tube, this is also expected and normal - You may change the dressing around the tube as needed - Follow up with the physician in the office for tube removal Discharge Disposition: HOME SELF-CARE
== END 2022-10-23 16:20 | disposition home or self-care (01) ==
LOC: OR 06:07 → 4FBP 10:22 → OR 10-23 16:20
PROVIDERS: ATTEND Urology
DX: N20.0 Calculus of kidney (principal); I10 Essential (primary) hypertension; Z98.51 Tubal ligation status; Z87.891 Personal history of nicotine dependence; Z80.0 Family history of malignant neoplasm of digestive organs; Z79.899 Other long term (current) drug therapy
CPT/HCPCS: 86900; 86901; 86850; 82365; 50432; 74018; 76942; 93005; 50080; J1100; J2405; J1580; J1885; J1170; Q9967; J1644

== ENCOUNTER → 2022-12-17 | Outpatient (CLI) | payer MEDICARE, OTHER ==
--- NOTE | 2022-12-18 10:22 | MM ---
Reason for Exam: Screening (asymptomatic). Last mammogram was performed 1 year(s) and 3 month(s) ago. Patient History: Menarche at age 15. First Full-Term at age 22. Postmenopausal. Risk Values: Stefani 5 year model risk: 1.4%. NCI Lifetime model risk: 2.5%. Prior Study Comparison: 03/10/2019 Bilateral Screening Mammogram, [facility]. 06/12/2020 Bilateral Screening Mammogram, [facility]. 09/05/2021 Bilateral Screening Mammogram, [facility]. Tissue Density: The breast tissue is heterogeneously dense. This may lower the sensitivity of mammography. Findings: Analyzed By CAD. Benign-appearing vascular calcifications in the bilateral breasts is redemonstrated. There is no suspicious group of microcalcifications or new suspicious mass in either breast. Overall Assessment: Negative, BI-RAD 1 Management: Screening Mammogram of both breasts in 1 year. A clinical breast exam by your physician is recommended on an annual basis and results should be correlated with mammographic findings. Electronically signed and approved by: Lester Rey M.D.
== END | disposition home or self-care (01) ==
LOC: RADMAMWWP 14:54
PROVIDERS: ATTEND Family Medicine
DX: Z12.31 Encounter for screening mammogram for malignant neoplasm of breast (principal); Z78.0 Asymptomatic menopausal state
CPT/HCPCS: 77063; 77067

== ENCOUNTER → 2022-12-23 | Outpatient (CLI) | payer MEDICARE, OTHER ==
--- NOTE | 2022-12-23 11:24 | US ---
EXAMINATION TYPE: US kidneys/renal and bladder DATE OF EXAM: 12/23/2022 COMPARISON: NONE CLINICAL HISTORY: N20.0 CALCULUS OF KIDNEY. History of kidney stones. Removal left kidney stones 1 mo nth ago EXAM MEASUREMENTS: Right Kidney: 9.2 x 3.9 x 4.3 cm Left Kidney: 10.8 x 5.1 x 3.4 cm *Limitations due to large amount of overlying bowel content Right Kidney: dilated renal pelvis. anechoic area lower pole = 1.0 x 0.8 x 0.8cm Left Kidney: probable stone lower pole = 0.5cm. anechoic area mid = 1.7 x 1.6 x 1.5cm Bladder: appears wnl Bilateral Jets seen: yes No masses are identified. The urinary bladder is anechoic. Bilateral ureteral jets are seen. IMPRESSION: 1. Prominence of the right renal pelvis may reflect an extrarenal pelvis. 2. Nonobstructing left-sided nephrolithiasis.
== END | disposition home or self-care (01) ==
LOC: RADUSWWP 10:19
PROVIDERS: ATTEND Urology
DX: N20.0 Calculus of kidney (principal)
CPT/HCPCS: 76770

== ENCOUNTER → 2023-08-25 | Outpatient (CLI) | payer MEDICARE, OTHER ==
--- NOTE | 2023-08-25 10:55 | XR ---
EXAMINATION TYPE: XR chest 2V DATE OF EXAM: 08/25/2023 COMPARISON: 10/16/2018 TECHNIQUE: PA and lateral views submitted. HISTORY: Persistent cough FINDINGS: The lungs are clear and there is no pneumothorax, pleural effusion, or focal pneumonia. Heart size normal and no overt failure. Osseous structures demonstrate hypertrophic and degenerative changes of the spine. Hyperinflation compatible with COPD. Biapical pleural thickening. Atherosclerotic change a say. Diffuse osteopenia. IMPRESSION: 1. No acute process. Correlate for COPD.
== END | disposition home or self-care (01) ==
LOC: RADXRMAIN 10:30
PROVIDERS: ATTEND Family Medicine
DX: Z00.00 Encounter for general adult medical examination without abnormal findings (principal); R05.9 Cough, unspecified
CPT/HCPCS: 71046

== ENCOUNTER → 2023-10-15 | Outpatient (CLI) | payer MEDICARE, OTHER ==
--- NOTE | 2023-10-15 15:29 | US ---
EXAMINATION TYPE: US venous doppler duplex LE LT DATE OF EXAM: 10/15/2023 3:21 PM COMPARISON: NONE CLINICAL INDICATION: Female, 78 years old with history of Z47.1, I80.9 PHLEBITIS AND THROMBOPHLEBITIS ; Meniscus surgery on Oct 02 2023. Patient states pain from hip to calf. No redness or swelling. No t on blood thinners. SIDE PERFORMED: Left TECHNIQUE: The lower extremity deep venous system is examined utilizing real time linear array sonog shailesh with graded compression, doppler sonography and color-flow sonography. VESSELS IMAGED: Common Femoral Vein Deep Femoral Vein Greater Saphenous Vein * Femoral Vein Popliteal Vein Small Saphenous Vein * Proximal Calf Veins (* superficial vessels) Left Leg: Negative for DVT IMPRESSION: No evidence for DVT within the left lower extremity imaged from the groin to the upper calf.
== END | disposition home or self-care (01) ==
LOC: RADUSWWP 14:54
PROVIDERS: ATTEND Physical Medicine & Rehabilitation
DX: M17.12 Unilateral primary osteoarthritis, left knee (principal); M11.262 Other chondrocalcinosis, left knee; M23.362 Other meniscus derangements, other lateral meniscus, left knee; E78.49 Other hyperlipidemia; Z47.1 Aftercare following joint replacement surgery; Z96.652 Presence of left artificial knee joint

== ENCOUNTER → 2024-02-18 | Outpatient (CLI) | payer MEDICARE, OTHER ==
--- NOTE | 2024-02-24 19:54 | MM ---
Reason for Exam: Screening (asymptomatic). Last mammogram was performed 1 year(s) and 2 month(s) ago. Patient History: Menarche at age 15. First Full-Term at age 22. Postmenopausal. Risk Values: Stefani 5 year model risk: 1.4%. NCI Lifetime model risk: 2.3%. Prior Study Comparison: 06/12/2020 Bilateral Screening Mammogram, [facility]. 09/05/2021 Bilateral Screening Mammogram, [facility]. 12/17/2022 Bilateral MG 3D screening mammo w/cad, [facility]. Tissue Density: The breasts are heterogeneously dense, which may obscure small masses. Findings: Analyzed By CAD. There is no suspicious group of microcalcifications or new suspicious mass in either breast. Overall Assessment: Negative, BI-RAD 1 Management: Screening Mammogram of both breasts in 1 year. . Patient should continue monthly self-breast exams. A clinical breast exam by your physician is recommended on an annual basis. This exam should not preclude additional follow-up of suspicious palpable abnormalities. Note on Stefani scores and lifetime risk: 1. A Stefani score greater than 3% is considered moderate risk. If this is the case, consider specialist referral to assess eligibility for a risk reducing agent. 2. If overall lifetime risk for the development of breast cancer is 20% or higher, the patient may qualify for future screening with alternating mammogram and breast MRI. Electronically signed and approved by: Valeria Jones M.D. Radiologist
--- NOTE | 2024-02-26 22:51 | BD ---
EXAMINATION TYPE: Axial Bone Density DATE OF EXAM: 02/18/2024 CLINICAL HISTORY: 78 years old Female. ICD-10 CODE: Z78.0 post menopausal Height: 64 Weight: 125.5 FRAX RISK QUESTIONS: Alcohol (3 or more units per day): no Family History (Parent hip fracture): no Glucocorticoids (More than 3mos): no (Ex: prednisone, prednisolone, methylprednisolone, dexamethasone, and hydrocortisone). History of Fracture in Adulthood: yes Secondary Osteoporosis: 1. Type 1 Diabetes: no 2. Hyperthyroidism: no 3. Menopause before 45: no 4. Malnutrition: no 5. Chronic liver disease: no Rheumatoid Arthritis: no Current Tobacco Use: no RISK FACTORS HISTORY OF: History of Wrist Fracture: right wrist When: as a child Surgery to Spine/Hip(right/left)/Wrist (right/left): no When: EXAM MEASUREMENTS: Bone mineral densitometry was performed using the Proofpoint System. Bone mineral density as measured about the Lumbar spine is: ----- L1-L4(G/cm2): 0.968 T Score Values are as follows: ----- L1: -2.5 ----- L2: -2.5 ----- L3: -1.2 ----- L4: -1.3 ----- L1-L4: -1.8 Z Score Values are as follows: ----- L1: -0.4 ----- L2: -0.4 ----- L3: 0.9 ----- L4: 0.8 ----- L1-L4: 0.3 Bone mineral density : baseline Bone mineral density about the R hip (g/cm2): 0.831 Bone mineral density about the L hip (g/cm2): 0.795 T Score values are as follows: -----R Neck: -1.8 -----L Neck: -2.3 -----R Total: -1.4 -----L Total: -1.7 Z Score values are as follows: -----R Neck: 0.5 -----L Neck: 0.0 -----R Total: 0.8 -----L Total: 0.5 Bone mineral density : baseline FRAX%s: The graph provided illustrates a 22.9% chance for a major osteoporotic fx and a 7.2% chance f or the hips probability for fx in 10 years time. IMPRESSION: Osteopenia (T Score between -2.5 and -1). There is slightly increased risk of fracture and the patient may be considered for treatment. Re-Screen 2-5 years. NOTE: T-SCORE=SD OF THE YOUNG ADULT MEAN.
== END | disposition home or self-care (01) ==
LOC: RADMAMWWP 10:37
PROVIDERS: ATTEND Family Medicine
DX: Z12.31 Encounter for screening mammogram for malignant neoplasm of breast (principal); M85.89 Other specified disorders of bone density and structure, multiple sites; M81.0 Age-related osteoporosis without current pathological fracture; Z78.0 Asymptomatic menopausal state
CPT/HCPCS: 77063; 77067; 77080

== ENCOUNTER 2024-05-14 08:26 | Emergency (ER) | payer MEDICARE, OTHER | END 2024-05-14 09:20 | disposition home or self-care (01) | LOC: EC 08:26 | DX: B02.9 Zoster without complications (principal) | CPT/HCPCS: 99282 ==

== ENCOUNTER → 2024-07-19 | Outpatient (CLI) | payer MEDICARE, OTHER ==
--- NOTE | 2024-07-19 11:08 | CT ---
EXAMINATION TYPE: CT brain wo con CT DLP: 1088 mGycm, Automated exposure control for dose reduction was used. DATE OF EXAM: 07/19/2024 10:57 AM COMPARISON: Prior CT Brain from 04/07/2018, MR brain 06/22/2019 . CLINICAL INDICATION:Female, 78 years old with history of R41.3 OTHER AMNESIA, HEADACHE TECHNIQUE: Brain: Multiple axial CT images of the brain were obtained without IV contrast. . Coronal and sagitta l reformats reviewed. FINDINGS: Brain: Extra-axial spaces: No abnormal extra-axial fluid collections. Ventricular system: Within normal limits Cerebral parenchyma: No acute intraparenchymal hemorrhage or mass effect. The zelaya-white junction is well differentiated. Scattered hypoattenuating areas are seen within the white matter. Cerebellum: Unremarkable. Mass effect: No evidence of midline shift. Intracranial vasculature: Atherosclerotic calcifications of the intracranial vessels. Soft tissues: Normal. Calvarium/osseous structures: No depressed skull fracture. Paranasal sinuses and mastoid air cells: Clear Visualized orbits: Bilateral aphakia IMPRESSION: 1. No acute intracranial process. 2. Nonspecific white matter changes, likely secondary to chronic small vessel ischemic disease. [facility], , 07/19/2024 11:06 AM
--- NOTE | 2024-07-19 11:30 | US ---
EXAMINATION TYPE: US carotid duplex BILAT DATE OF EXAM: 07/19/2024 COMPARISON: NONE CLINICAL INDICATION: Female, 78 years old with history of R41.3 OTHER AMNESIA; headaches pressure TECHNIQUE: Grayscale, color Doppler and spectral Doppler evaluation of the bilateral carotid systems and vertebral arteries. Indirect Doppler criteria was utilized. FINDINGS: EXAM MEASUREMENTS: RIGHT: Peak Systolic Velocity (PSV) cm/sec ----- Right CCA: 88.1 ----- Right ICA: 88.1 ----- Right ECA: 111.3 ICA/CCA ratio: 1.0 RIGHT: End Diastole cm/sec ----- Right CCA: 18.3 ----- Right ICA: 19.8 ----- Right ECA: 35.7 LEFT: Peak Systolic Velocity (PSV) cm/sec ----- Left CCA: 86.6 ----- Left ICA: 89.5 ----- Left ECA: 83.7 ICA/CCA ratio: 1.0 LEFT: End Diastole cm/sec ----- Left CCA: 21.2 ----- Left ICA: 27.0 ----- Left ECA: 15.4 VERTEBRALS (direction of flow): Right Vertebral: Antegrade Left Vertebral: Antegrade Rhythm: Normal RUBY [employer] SOFTWARE DEVELOPER NOTES: No significant stenosis seen IMPRESSION: No ultrasound evidence for hemodynamically significant stenosis of the bilateral visualized carotid a rterial systems. Criteria for Assigning % of Stenosis / Diameter reduction (Estimation based on the indirect measurements of the internal carotid artery velocities (ICA PSV). 1. Normal (no stenosis)=ICA PSV < 125 cm/s: ratio < 2.0: ICA EDV<40 cm/s. 2. Less than 50% stenosis=ICA PSV < 125 cm/s: ratio < 2.0: ICA EDV<40 cm/s. 3. 50 to 69% stenosis=ICA PSV of 125 to 230 cm/s: ration 2.0 ? 4.0: ICA EDV 40-100 cm/s. 4. Greater than 70% stenosis to near occlusion= ICA PSV > 230 cm/s: ratio > 4.0: ICA EDV > 100 cm/s. 5. Near occlusion= ICA PSV velocities may be low or undetectable: variable ratio and ICA EDV. 6. Total occlusion=unable to detect flow. [facility], , 07/19/2024 11:28 AM
== END | disposition home or self-care (01) ==
LOC: RADCTMAIN 10:36
PROVIDERS: ATTEND Family Medicine
DX: R41.3 Other amnesia
CPT/HCPCS: 70450; 93880

== ENCOUNTER → 2024-09-02 | Outpatient (CLI) | payer MEDICARE, OTHER ==
--- NOTE | 2024-09-02 11:50 | FL ---
Exam Date: 09/02/2024 11:31 AM. Modified barium swallow for dysphagia. Consistencies administered: Various consistency of barium. Fluoro time: 45 No images were sent to PACS. Please see speech pathology report. DAP: Not reported mGym2 Gycm2 [facility], , 09/02/2024 11:48 AM
== END | disposition home or self-care (01) ==
LOC: RADFLMAIN 10:51
PROVIDERS: ATTEND Family Medicine
DX: R13.10 Dysphagia, unspecified (principal)
CPT/HCPCS: 74230

== ENCOUNTER → 2025-01-17 | Outpatient (CLI) | payer MEDICARE, OTHER ==
--- NOTE | 2025-01-18 08:30 | MR ---
EXAMINATION TYPE: MR brain wo con DATE OF EXAM: 01/17/2025 9:37 PM COMPARISON: 06/22/2019. CLINICAL INDICATION: Female, 79 years old with history of R51.9; TECHNIQUE: Multi planar, multi sequence imaging was performed through the brain including: T1, T2, In version recovery, Diffusion weighted imaging, and gradient echo imaging. No gadolinium was given. FINDINGS: The zelaya-white junctions, ventricular system, basal cisterns appear unremarkable. Scattered foci of high T2 signal intensity are seen within the periventricular white matter. Midline structures show n o abnormality. Diffusion-weighted imaging shows no evidence of restricted diffusion. The susceptibili ty weighted images do not reveal any evidence for micro-hemorrhage. The bone marrow signal is within normal limits. Paranasal sinuses and mastoid air cells: No significant paranasal sinus disease. Visualized orbits: Bilateral aphakia IMPRESSION: 1. No evidence of intracranial mass or acute/subacute infarct. 2. Nonspecific white matter changes, likely secondary to small vessel ischemic disease. [facility], , 01/18/2025 8:28 AM
== END | disposition home or self-care (01) ==
LOC: RADMRIMAIN 21:15
PROVIDERS: ATTEND Emergency Medicine
DX: R90.82 White matter disease, unspecified (principal)
CPT/HCPCS: 70551

== ENCOUNTER → 2025-01-25 | Outpatient (CLI) | payer MEDICARE, OTHER ==
--- NOTE | 2025-01-25 19:15 | MR ---
INDICATION: Patient age:Female; 79 years old; Reason for study: M54.12 RADICULOPATHY, CERVICAL REGION; [facility]. COMPARISON: MRI brain 01/17/2025, CT soft tissue neck 04/07/2018. TECHNIQUE: Multi planar, multi sequence imaging was performed of the cervical spine. No Gadolinium wa s given. FINDINGS: Alignment: The cervical vertebral bodies have preserved heights. Degenerative grade 1 anterolisthesis of C3 on C4 and grade 1 retrolisthesis of C4 on C5. Bones: Type I Modic changes involving the endplates around the C4-C5 disc. Multilevel anterior osteop hytosis of the cervical spine most pronounced at C4-C6. Cord: The spinal cord is unremarkable with regards to their signal intensity and morphology. Discs: Multilevel disc desiccation is present. C2-C3: No significant disc pathology. The spinal canal is patent. No neural foraminal stenosis. C3-C4: No significant disc pathology. The spinal canal is patent. No neural foraminal stenosis. C4-C5: Right paracentral disc protrusion superimposed upon a broad-based disc bulge with ligamentum f lavum buckling. Resultant moderate central canal stenosis and mild mass effect upon the anterior thec al sac. No signal abnormality of the spinal cord. Bilateral facet arthropathy. Moderate left and mild -to-moderate right neural foraminal stenosis. C5-C6: Central disc protrusion superimposed upon a broad-based disc bulge with mild effacement of the anterior thecal sac. There is abutment of the ventral spinal cord without significant mass effect or signal change. Ligamentum flavum buckling demonstrated. Results in mild central canal stenosis. Ther e is moderate bilateral neural foraminal stenosis. C6-C7: Broad-based disc bulge with minimal effacement of the anterior thecal sac. Ligamentum flavum b uckling demonstrated. No significant central canal stenosis. Mild bilateral neural foraminal stenosis . C7-T1: No significant disc pathology. The spinal canal is patent. No neural foraminal stenosis. Other: Right thyroid lobe T2 hyperintense 1.2 cm thyroid nodule which has appeared to increase in siz e from prior CT in 2018 when it measured grossly 0.6 cm. IMPRESSION: 1. 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 This is most pronounced at C4-C5 and C5-C6 disc herniations as described above. 2. Increasing size of right thyroid lobe 1.2 cm nodule from prior CT. Consider further evaluation wit h thyroid ultrasound. [facility], , 01/25/2025 7:13 PM
== END | disposition home or self-care (01) ==
LOC: RADMRIMAIN 17:56
PROVIDERS: ATTEND Emergency Medicine
DX: M50.121 Cervical disc disorder at C4-C5 level with radiculopathy (principal); M99.71 Connective tissue and disc stenosis of intervertebral foramina of cervical region; M48.02 Spinal stenosis, cervical region
CPT/HCPCS: 72141

== ENCOUNTER → 2025-03-21 | Outpatient (CLI) | payer MEDICARE, OTHER ==
--- NOTE | 2025-03-22 07:45 | MM ---
Reason for Exam: Screening (asymptomatic). Last mammogram was performed 1 year(s) and 1 month(s) ago. Patient History: Menarche at age 15. First Full-Term at age 22. Postmenopausal. Risk Values: Stefani 5 year model risk: 1.3%. NCI Lifetime model risk: 2.1%. Prior Study Comparison: 09/05/2021 Bilateral Screening Mammogram, [facility]. 12/17/2022 Bilateral MG 3D screening mammo w/cad, [facility]. 02/18/2024 Bilateral MG 3D screening mammo w/cad, [facility]. Tissue Density: The breasts are heterogeneously dense, which may obscure small masses. Findings: Analyzed By CAD. Right breast: There is no suspicious group of microcalcifications or new suspicious mass. Left breast: There is no suspicious group of microcalcifications or new suspicious mass. Overall Assessment: Negative, BI-RAD 1 Management: Screening Mammogram of both breasts in [address] [facility] will attempt to contact patient to return for supplemental views and ultrasound if indicated. Patient should continue monthly self-breast exams. A clinical breast exam by your physician is recommended on an annual basis. This exam should not preclude additional follow-up of suspicious palpable abnormalities. Note on Stefani scores and lifetime risk: 1. A Stefani score greater than 3% is considered moderate risk. If this is the case, consider specialist referral to assess eligibility for a risk reducing agent. 2. If overall lifetime risk for the development of breast cancer is 20% or higher, the patient may qualify for future screening with alternating mammogram and breast MRI. [facility], , 03/22/2025 7:43 AM. Electronically signed and approved by: Shawn Singh DO
== END | disposition home or self-care (01) ==
LOC: RADMAMWWP 15:26
PROVIDERS: ATTEND Emergency Medicine
DX: Z12.31 Encounter for screening mammogram for malignant neoplasm of breast (principal); R92.333 Mammographic heterogeneous density, bilateral breasts; Z78.0 Asymptomatic menopausal state
CPT/HCPCS: 77063; 77067